=== PATIENT | female | born 1985 | race Two or more races ===

== ENCOUNTER 2017-09-25 06:22 | Emergency (ER) | payer OTHER ==
[~2017-09-25] VITALS: Ht 167.6 cm; Wt 61.2 kg
[2017-09-25 06:54] VITALS: BP 123/90
--- NOTE | 2017-09-25 06:57 | NUR ---
DR. BENSON AT BEDSIDE FOR EVAL.
[2017-09-25] MEDS ORDERED: diphenhydrAMINE HCL 50 MG/ML VIAL ONE (07:14)
[2017-09-25] MEDS ORDERED: FAMOTIDINE/PF INJ 20 MG/2 ML VIAL IV ONE (07:14)
[2017-09-25] MEDS ORDERED: DEXAMETHASONE SOD PHOSPHATE 10 MG/ML VIAL ONE (07:14)
[2017-09-25] MEDS: DEXAMETHASONE SOD PHOSPHATE 10 MG/ML VIAL IV ONE (07:23)
[2017-09-25] MEDS: FAMOTIDINE/PF INJ 20 MG/2 ML VIAL IV ONE (07:24)
[2017-09-25] MEDS: diphenhydrAMINE HCL 50 MG/ML VIAL IV ONE (07:25)
--- NOTE | 2017-09-25 07:26 | NUR ---
REPORT GIVEN TO NITHIN HARDWICK FOR JU
== END 2017-09-25 08:17 | disposition home or self-care (01) ==
LOC: ER 06:36
DX: L50.9 Urticaria, unspecified (principal); J45.909 Unspecified asthma, uncomplicated
CPT/HCPCS: 96374; 96375; 99284; J1100; J1200; J3490